=== PATIENT | female | born 1950 | race Caucasian/White ===

== ENCOUNTER → 2020-03-07 12:00 | Outpatient (CLI) | payer OTHER, SELFPAY ==
--- NOTE | ~2020-03-07 | US_ITS ---
EXAMINATION: US renal BI DATE: 03/07/2020 12:36 INDICATION: Low osmolality. Hyponatremia. Left flank pain. UPJ obstruction. TECHNIQUE: Multiple ultrasound grayscale images of the kidneys were obtained. COMPARISON: CT dated 03/05/2005 FINDINGS: The right kidney measures 9.8 x 6.1 x 4.8 cm. The left kidney measures 9.3 x 4.7 x 3.8 cm. The kidney s demonstrate normal echogenicity. Mild left hydronephrosis which may be chronic with similar degree of hydronephrosis seen on prior CT dated 03/05/2005. There is no hydronephrosis in the right kidney. No stones identified. The bladder is normal partially decompressed which limits evaluation. A right- sided. No left-sided ureteral jet was visualized in the bladder on color Doppler.. IMPRESSION: 1. Mild left hydronephrosis with absent left renal jet which is of indeterminate etiology or chronic ity. 2. Normal right kidney with no right-sided hydronephrosis. Reviewed, dictated and finalized at location B. [employer] IMPRESSION: 1. Mild left hydronephrosis with absent left renal jet which is of indetermina te etiology or chronicity. 2. Normal right kidney with no right-sided hydronephrosis.
== END ==
PROVIDERS: PCP Family Medicine; Visit Provider Physician Assistant
DX: E87.1 Hypo-osmolality and hyponatremia (principal); N13.30 Unspecified hydronephrosis; Q63.9 Congenital malformation of kidney, unspecified
CPT/HCPCS: 76775

== ENCOUNTER → 2021-08-10 12:38 | Outpatient (CLI) | payer OTHER, SELFPAY ==
--- NOTE | ~2021-08-10 | MM_ITS ---
EXAMINATION: MM screening [facility] BI w tuan HISTORY: Screening mammogram TECHNIQUE: Craniocaudal and mediolateral oblique 3-D tomosynthesis images were obtained and synthetic 2-D images were generated. CAD analysis was submitted and interpreted. COMPARISON: 05/07/2018, 08/09/2016, 03/19/2012 BREAST PARENCHYMAL COMPOSITION: The breasts are heterogeneously dense, which may obscure small masses . FINDINGS: There is no suspicious mass, calcification, or architectural distortion to suggest malignan cy in either breast. There has been no suspicious interval change. IMPRESSION: 1. No mammographic evidence of malignancy. 2. Recommend routine screening mammography in one year. BI-RADS Category 1: Negative Reviewed, dictated and finalized at location A.
== END ==
PROVIDERS: PCP Family Medicine; Visit Provider Nurse Practitioner Gerontology
DX: Z12.31 Encounter for screening mammogram for malignant neoplasm of breast (principal)
CPT/HCPCS: 77063; 77067

== ENCOUNTER 2021-11-21 11:05 | Outpatient (CLI) | payer MEDICARE, OTHER, SELFPAY ==
--- NOTE | ~2021-11-21 | US_ITS ---
EXAMINATION: US renal BI DATE: 11/21/2021 11:33 INDICATION: Chronic kidney disease TECHNIQUE: Multiple grayscale and Doppler ultrasound images of the kidneys were obtained. COMPARISON: 03/07/2020 FINDINGS: The right kidney measures 10.1 x 4.2 x 5.1 cm. The left kidney measures 9.9 x 4.8 x 4.3 cm. The kidneys demonstrate normal parenchymal echogenicity. There is mild left hydronephrosis. The blad solomon is normal in appearance. IMPRESSION: 1. Mild left hydronephrosis. Reviewed, dictated and finalized at location A.
== END 2021-11-21 11:06 | disposition home or self-care (01) ==
PROVIDERS: PCP Family Medicine; Visit Provider Nurse Practitioner Gerontology
DX: D64.9 Anemia, unspecified (principal); N13.30 Unspecified hydronephrosis; N18.9 Chronic kidney disease, unspecified
CPT/HCPCS: 76775

== ENCOUNTER 2022-01-11 00:24 | Day surgery (SDC) | payer MEDICARE, OTHER, SELFPAY ==
[2021-12-28 14:31] VITALS: BMI 26.9
--- NOTE | 2022-01-10 15:45 | PM.HPGS ---
History of Present Illness History of Present Illness Consent: Risks, benefits, and alternatives have been discussed and questions answered. Patient agrees to proceed with procedure. Chief complaint: neoplasm screening Narrative: Corie Estevez is a 71 year old female Referred for colon cancer screening. Review of Systems Review of Systems: All systems reviewed & are unremarkable except as noted in HPI and below PMFSH Past Medical History Medical History BP (high blood pressure) Chronic insomnia SCARLETT (generalized anxiety disorder) Family History Family History Father Hypertension Family history of malignant melanoma Patient's father is Mother Hypertension Social History Social History Social History: Smoking status: Never smoker Second hand tobacco smoke exposure: No Alcohol intake: never Substance use: never Substance use type: does not use Living arrangements: with family Gender identity (if verbalized by the patient): Female Spiritual care concerns: No Meds Home Medications and Allergies Home Medications Medication Instructions Recorded Confirmed Type triamterene 37.5 See Rx Instructions .Route 08/17/21 12/28/21 Rx mg-hydrochlorothiazide 25 mg tablet .COMPLEX #90 tabs duloxetine 30 mg capsule,delayed 30 mg PO DAILY #30 caps 11/14/21 12/28/21 Rx release polysaccharide iron complex 150 mg See Rx Instructions .Route 11/20/21 12/28/21 Rx iron capsule .COMPLEX #90 caps hydroxyzine HCl 25 mg tablet See Rx Instructions .Route 12/10/21 12/28/21 Rx .COMPLEX #90 tabs losartan 50 mg tablet See Rx Instructions .Route 12/17/21 12/28/21 Rx .COMPLEX #90 tabs fluticasone propionate 50 1 spray intranasal Q12H PRN 12/28/21 12/28/21 History mcg/actuation nasal Allergy Symptoms spray,suspension montelukast 10 mg tablet See Rx Instructions .Route 01/01/22 01/11/22 Rx .COMPLEX #90 tabs tizanidine 4 mg tablet See Rx Instructions .Route 01/11/22 01/11/22 Rx .COMPLEX #60 tabs zolpidem 10 mg tablet 10 mg PO QHS #30 tabs 01/11/22 01/11/22 Rx Allergies Allergy/AdvReac Type Severity Reaction Status Date / Time Penicillins Allergy Unknown hives Verified 01/11/22 12:49 Exam Resp: Auscultation: clear to auscultation bilaterally Cardio: Rate: regular rate Rhythm: regular rhythm GI: GI Palp: Yes Soft to palpation and No Tenderness to palpation present (GI) Assessment and Plan Assessment and plan (1) Colon cancer screening: Code(s): Z12.11 - Encounter for screening for malignant neoplasm of colon Status: Acute Assessment and Plan: Colonoscopy with possible biopsy or polypectomy or cautery or injection of substances.
[2022-01-11 12:51] VITALS: BP 145/72; PULSE 90; RESP 18; TEMP 36.2; O2SAT 100
--- NOTE | 2022-01-11 12:54 | WPDANESEPPF ---
Anes - Initial Pre Proc Eval Procedure: Operation Date: 01/11/22 14:00 Proposed Procedures p Screening Colonoscopy - Maurizio Nails MD Date/Time: 01/11/22 12:54 Surgeon: Maurizio Nails MD Pre Op Diagnosis: neoplasm screening Patient Data Age: 71 Gender: F Height: 1.63 m Weight: 72.7 kg Last Vital Signs Temp 97.1 F L 01/11/22 12:51 Pulse 90 01/11/22 12:51 Resp 18 01/11/22 12:51 BP 145/72 H 01/11/22 12:51 Pulse Ox 100 01/11/22 12:51 O2 Del Method Room Air 01/11/22 12:51 Allergies Allergy/AdvReac Type Severity Reaction Status Date / Time Penicillins Allergy Unknown hives Verified 01/11/22 12:49 Home Medications Medication Instructions Recorded Confirmed Type triamterene 37.5 See Rx Instructions .Route 08/17/21 12/28/21 Rx mg-hydrochlorothiazide 25 mg tablet .COMPLEX #90 tabs duloxetine 30 mg capsule,delayed 30 mg PO DAILY #30 caps 11/14/21 12/28/21 Rx release polysaccharide iron complex 150 mg See Rx Instructions .Route 11/20/21 12/28/21 Rx iron capsule .COMPLEX #90 caps hydroxyzine HCl 25 mg tablet See Rx Instructions .Route 12/10/21 12/28/21 Rx .COMPLEX #90 tabs losartan 50 mg tablet See Rx Instructions .Route 12/17/21 12/28/21 Rx .COMPLEX #90 tabs fluticasone propionate 50 1 spray intranasal Q12H PRN 12/28/21 12/28/21 History mcg/actuation nasal Allergy Symptoms spray,suspension montelukast 10 mg tablet See Rx Instructions .Route 01/01/22 01/11/22 Rx .COMPLEX #90 tabs tizanidine 4 mg tablet See Rx Instructions .Route 01/11/22 01/11/22 Rx .COMPLEX #60 tabs zolpidem 10 mg tablet 10 mg PO QHS #30 tabs 01/11/22 01/11/22 Rx Patient hx anesthesia problems: none Family hx anesthesia problems: none Results Review: All pre-operative results and documents have been reviewed as part of the pre-operative evaluation. [facility] Past Medical History Medical History (Updated 11/14/21 @ 16:48 by Arely Ruiz NP) BP (high blood pressure) Chronic insomnia SCARLETT (generalized anxiety disorder) Family History Family History Father Hypertension Family history of malignant melanoma Patient's father is Mother Hypertension Social History Social History Social History: Smoking status: Never smoker Second hand tobacco smoke exposure: No Alcohol intake: never Substance use: never Substance use type: does not use Living arrangements: with family Gender identity (if verbalized by the patient): Female Spiritual care concerns: No Anes - Eval Final PreProcedure Day of Procedure 01/11/22 12:54 Patient weight: normal Heart: regular rate and rhythm Lungs: clear to auscultation Airway: Mallampati scale Neurological: alert and oriented Last oral intake: >/= 8 hours ASA classification: II Emergent: no Anesthetic plan: proceed Anesthesia type and monitoring: general GIVS and standard monitoring Results Review: All pre-operative results and documents have been reviewed as part of the pre-operative evaluation. Informed Consent: The patient's anesthetic plan and its attendant risks and benefits were discussed with the patient/family/POA. Questions were solicited and answers provided to the satisfaction of the patient/family/POA.
[2022-01-11] MEDS: LACTATED RINGERS 1,000 ML 150 ML IV CONT (12:55)
[2022-01-11 13:19] VITALS: BP 126/75; PULSE 62; RESP 16; O2SAT 99
[2022-01-11 13:29] VITALS: BP 134/75; PULSE 64; RESP 19; O2SAT 100
[2022-01-11 13:39] VITALS: BP 150/84; PULSE 60; RESP 13; O2SAT 100
== END 2022-01-11 13:45 | disposition home or self-care (01) ==
PROVIDERS: PCP Family Medicine; Visit Provider Internal Medicine Gastroenterology
PROC: 0DJD8ZZ Inspection of Lower Intestinal Tract, Via Natural or Artificial Opening Endoscopic (ICD-10-PCS; CPT 45378; principal; 2022-01-11 14:00)
DX: Z12.11 Encounter for screening for malignant neoplasm of colon (principal); I10 Essential (primary) hypertension; G47.00 Insomnia, unspecified; F41.1 Generalized anxiety disorder
CPT/HCPCS: G0121; J2704; J7120

== ENCOUNTER → 2022-02-26 10:10 | Outpatient (CLI) | payer MEDICARE, OTHER, SELFPAY ==
--- NOTE | ~2022-02-26 | DEXA_ITS ---
Bone Density Report Name: JUAN MANUEL TATUM Age: 71 Sex: Female Ethnicity: White Date of : 1950 Indication: osteopenia; height loss; postmenopausal Referring Provider: FLORINDA BELL Study: Bone densitometry was performed. Exam Date: February 26, 2022 Accession number: [id number] Bone Density: Region BMD T-score Z-score Classification AP Spine (L1-L4) 1.317 2.5 4.6 Normal Femoral Neck (Left) 0.711 -1.2 0.5 Osteopenia Total Hip (Left) 0.738 -1.7 -0.2 Osteopenia Femoral Neck (Right) 0.705 -1.3 0.5 Osteopenia Total Hip (Right) 0.727 -1.8 -0.3 Osteopenia Total Hip Mean 0.733 -1.8 -0.3 Osteopenia World Health Organization criteria for BMD impression classify patients as: Normal (T-score at or above -1.0), Osteopenia (T-score between -1.0 and -2.5), or Osteoporosis (T-score at or below -2.5). 10-year Fracture Risk(1): Major Osteoporotic Fracture 9.3% Hip Fracture 1.1% Reported Risk Factors: [place] (), Neck BMD=0.705, BMI=28.4 (1) FRAX(R) Version 3.08. Fracture probability calculated for an untreated patient. Fracture probability may be lower if the patient has received treatment. Previous Exams: Region Exam Age BMD T-score BMD Change BMD Change Date g/cm2 vs Baseline vs Previous AP Spine(L1-L4) 02/26/2022 71 1.317 2.5 -0.023 -0.055* 08/09/2016 66 1.372 3.0 0.032* -0.036* 03/19/2012 61 1.408 3.3 0.069* 0.140* 08/10/2008 58 1.268 2.0 -0.071* -0.071* 08/21/2005 55 1.340 2.7 Total Hip(Left) 02/26/2022 71 0.738 -1.7 -0.164* -0.070* 08/09/2016 66 0.808 -1.1 -0.094* -0.072* 03/19/2012 61 0.880 -0.5 -0.022 0.044* 08/10/2008 58 0.836 -0.9 -0.066* -0.066* 08/21/2005 55 0.902 -0.3 Total Hip(Right) 02/26/2022 71 0.727 -1.8 -0.216* -0.108* 08/09/2016 66 0.835 -0.9 -0.108* -0.065* 03/19/2012 61 0.900 -0.3 -0.043* 0.068* 08/10/2008 58 0.832 -0.9 -0.110* -0.110* 08/21/2005 55 0.943 0.0 *Denotes significance at 95% confidence level, LSC for AP Spine = 0.022 g/cm2, LSC for Total Hip = 0.027 g/cm2 Clinical Information Provided by Patient: Has used the following medications: Vitamin D, Calcium Patient maximum height was 65.5 Menopause Age: 55 Onset of menses at age 13 Number of children 2
== END ==
PROVIDERS: PCP Nurse Practitioner Gerontology; Visit Provider Nurse Practitioner Gerontology
DX: Z78.0 Asymptomatic menopausal state (principal); M85.89 Other specified disorders of bone density and structure, multiple sites
CPT/HCPCS: 77080

== ENCOUNTER 2023-06-17 13:09 | Outpatient (CLI) | payer MEDICARE, OTHER, SELFPAY ==
--- NOTE | ~2023-06-17 | MM_ITS ---
EXAMINATION: MM screening [facility] BI w tuan HISTORY: Screening mammogram TECHNIQUE: Craniocaudal and mediolateral oblique 3-D tomosynthesis images were obtained and synthetic 2-D images were generated. CAD analysis was submitted and interpreted. COMPARISON: 08/10/2021, bilateral screening mammogram examinations BREAST PARENCHYMAL COMPOSITION: The breasts are heterogeneously dense, which may obscure small masses . FINDINGS: There is no evidence of suspicious mass, calcification, or architectural distortion to sugg est malignancy in either breast. There has been no suspicious interval change. IMPRESSION: 1. No mammographic evidence of malignancy. 2. Recommend routine screening mammography in one year. BI-RADS Category 1: Negative Reviewed, dictated and finalized at location A.
== END 2023-06-17 13:10 ==
LOC: MICIMG 13:10
PROVIDERS: PCP Physician Assistant; Visit Provider Physician Assistant
DX: Z12.31 Encounter for screening mammogram for malignant neoplasm of breast (principal)
CPT/HCPCS: 77063; 77067

== ENCOUNTER 2024-01-28 09:17 | Outpatient (CLI) | payer MEDICARE, OTHER, SELFPAY ==
--- NOTE | ~2024-01-28 | US_ITS ---
EXAMINATION: US_VDOPREFBI_US DATE: 01/28/2024 10:28 INDICATION: Venous insufficiency. TECHNIQUE: Grayscale ultrasound images without and with compression and Doppler ultrasound images of the bilateral lower extremity veins were obtained. COMPARISON: None. FINDINGS: The visualized portions of right common femoral vein, profunda (deep) femoral vein, femoral vein, pop liteal vein, peroneal veins, and posterior tibial veins are patent. Right greater saphenous vein radha ures 4 mm in the upper thigh without reflux, 3 mm in the inferior thigh with reflux of 3.1 seconds, a nd 3 mm in the calf with reflux of 1.6 seconds. Right small saphenous vein measures 1 mm in the super ior and inferior calf without reflux. The visualized portions of left common femoral vein, profunda femoral vein, femoral vein, popliteal v ein, peroneal veins, and posterior tibial veins are patent. Left greater saphenous vein measures 4 mm in the superior thigh without reflux, 3 mm in the inferior thigh without reflux, and 2 mm in the mandeep f without reflux. Left small saphenous vein measures 2 mm in the superior calf and inferior calf with out reflux. IMPRESSION: 1. Reflux in right greater saphenous vein. Reviewed, dictated and finalized at location A. GENCY MAN
== END 2024-01-28 09:18 | disposition home or self-care (01) ==
PROVIDERS: PCP Family Medicine; Visit Provider Physician Assistant
DX: I83.811 Varicose veins of right lower extremity with pain (principal); R60.0 Localized edema
CPT/HCPCS: 93970

== ENCOUNTER 2025-02-15 15:47 | Outpatient (CLI) | payer MEDICARE, OTHER, SELFPAY ==
--- NOTE | ~2025-02-15 | MM_ITS ---
EXAMINATION: MM screening [facility] BI w tuan HISTORY: Screening. TECHNIQUE: Craniocaudal and mediolateral oblique 3-D tomosynthesis images were obtained and synthetic 2-D images were generated. CAD analysis was submitted and interpreted. COMPARISON: 2023, 2021, and 2018. BREAST PARENCHYMAL COMPOSITION: The breast tissue is heterogeneously dense, which may obscure small masses. FINDINGS: There is a biopsy marker on the left. No suspicious masses are seen. There are no suspicious calcifications. No unexplained architectural distortion is seen. There are no skin or nipple abnormalities identified. There is no adenopathy seen on the images submitted. IMPRESSION: No mammographic evidence to suggest malignancy is seen. The patient may return to screening mammography as per ACR guidelines. BI-RADS Code: 1 - Negative. Reviewed, dictated and finalized at location B. [employer]
== END 2025-02-15 15:48 | disposition home or self-care (01) ==
LOC: MICIMG 15:48
PROVIDERS: PCP Family Medicine; Visit Provider Physician Assistant
DX: Z12.31 Encounter for screening mammogram for malignant neoplasm of breast (principal)
CPT/HCPCS: 77063; 77067